=== PATIENT | male | born 1965 | race Caucasian/White ===

== ENCOUNTER → 2017-04-28 | Outpatient (CLI) | payer OTHER ==
[~2017-04-28] MED LIST: CONTRAST GIVEN MC PRN; IOHEXOL 240 MG/ML 50ML VIAL. PO ONE
--- NOTE | 2017-04-28 11:44 | RAD ---
CT abdomen without contrast 04/28/2017 Indication: Ventral hernia Comparison: None available Technique: Multiple axial CT images of the abdomen were performed without intravenous contrast. Coronal and sagittal reformats are provided. Oral contrast was administered. Findings: Visualized lung bases are clear. Heart size is within normal limits. Evaluation of solid abdominal viscera is limited by lack of intravenous contrast. The liver, spleen, bilateral adrenal glands, and pancreas are within normal limits. Gallbladder is present without adjacent inflammatory changes. Abdominal aorta is normal in course and caliber. Kidneys are symmetric in appearance. No renal calculi identified. No hydronephrosis. No renal calculi are identified along the visualized course of the ureters. Normal appendix is visualized. No dilated loops of small or large bowel. Opacified aspects of the bowel are normal without significant bowel wall thickening or adjacent inflammatory changes. There are no enlarged lymph nodes in the abdomen. There is no abdominal free fluid. No significant ventral abdominal hernia. Specifically, or inferior to the visualized portions of the sternum. Impression: No acute abnormality is identified within the abdomen. No CT evidence for a ventral hernia, especially in proximity to the sternum.
== END | disposition home or self-care (01) ==
LOC: CT 10:26
PROVIDERS: ATTEND Family Medicine
DX: K43.9 Ventral hernia without obstruction or gangrene (principal)
CPT/HCPCS: 74150; Q9966

== ENCOUNTER → 2020-03-11 | Outpatient (CLI) | payer MEDICAID ==
--- NOTE | 2020-03-11 12:09 | KCIC ---
PA and lateral views of the chest. Comparison: None available at this time Indication: Follow-up lung nodule Findings: 0.7 cm left mid to upper lung zone nodule. No focal consolidation. Normal lung volume. No pleural effusion or pneumothorax. The cardiomediastinal silhouette and great vessels are normal. No acute osseous abnormality. IMPRESSION: 0.7 cm left mid to upper lung zone nodule which could be partially calcified, but difficult to evaluate on radiographs. Indication states that this is a follow-up to a known lung nodule, but no prior imaging is available currently for comparison. Comparison to that imaging would be helpful. CT chest could be considered if not previously obtained. Electronically signed by: Francisco Holloway MD (03/11/2020 12:06 PM) [id number]
== END | disposition home or self-care (01) ==
LOC: KCIC 10:27
PROVIDERS: ATTEND Family Medicine
DX: R93.89 Abnormal findings on diagnostic imaging of other specified body structures (principal); R91.1 Solitary pulmonary nodule
CPT/HCPCS: 71046

== ENCOUNTER → 2020-05-10 | Outpatient (CLI) | payer MEDICAID ==
[~2020-05-10] MED LIST changes: -CONTRAST GIVEN MC PRN; -IOHEXOL 240 MG/ML 50ML VIAL. PO ONE; +REGADENOSON 0.4 MG/5 ML DISP.SYRIN. IV ONE
--- NOTE | 2020-05-10 10:58 | CARD ---
MR#: [id number] Date of Study: 05/10/2020 Ordering Physician: HILARIO TOWNSEND, Referring Physician: HILARIO TOWNSEND, Tech: Wanda Cyr APPROVED REPORT EXAM: Two-dimensional and M-mode echocardiogram with Doppler and color Doppler. Other Information Quality : AverageHR: 62bpm INDICATION Chest Pain RISK FACTORS Hyperlipidemia 2D DIMENSIONS RVDd4.1 (2.9-3.5cm)Left Atrium(2D)3.7 (1.6-4.0cm) IVSd1.0 (0.7-1.1cm)Aortic Root(2D)2.9 (2.0-3.7cm) LVDd5.0 (3.9-5.9cm)LVOT Diameter2.1 (1.8-2.4cm) PWd0.9 (0.7-1.1cm)LVDs3.5 (2.5-4.0cm) FS (%) 30.8 %SV69.8 ml LVEF(%)58.2 (>50%) Aortic Valve AoV Peak Mazin.160.2cm/sAoV VTI32.8cm AO Peak GR.10.3mmHgLVOT Peak Mazin.100.5cm/s LVOT VTI 24.37cmAO Mean GR.5mmHg HOSEA (VMAX)1.87rv3VBY (VTI)2.54cm2 Mitral Valve MV E Mgatkqna66.2cm/sMV DECEL RGFK124fk MV A Cikvkkrk11.3cm/sMV E Mean Gr.1mmHg MV CYT29nuC/A Ratio1.8 MVA (PHT)4.14cm2 TDI E/Lateral E'5.9E/Medial E'8.8 Pulmonary Valve PV Peak Shclxtbp148.3cm/sPV Peak Grad.6mmHg Tricuspid Valve TR P. Eemidwku951em/sRAP VOWOLXAY2vmAn TR Peak Gr.97qzXuGPTK92boLs Pulmonary Vein S1 Beqecepg49.0cm/sD2 Wdnrakqi13.8cm/s PVa lzzwrvan041cqgz LEFT VENTRICLE The left ventricle is normal size. There is normal left ventricular wall thickness. The left ventricu lar systolic function is normal. The Ejection Fraction is 55-60%. There is normal LV segmental wall m otion. RIGHT VENTRICLE The right ventricle is normal size. There is normal right ventricular wall thickness. The right ventr icular systolic function is normal. ATRIA The left atrium size is normal. The right atrium size is normal. The interatrial septum is intact wit h no evidence for an atrial septal defect or patent foramen ovale as noted on 2-D or Doppler imaging. AORTIC VALVE The aortic valve is thickened but opens well. Doppler and Color Flow revealed no significant aortic r egurgitation. There is no significant aortic valvular stenosis. Calculated aortic valve area is 2.46 cm2 with maximum pressure gradient of 11 mmHg and mean pressure gradient of 7 mmHg. MITRAL VALVE The mitral valve is normal in structure and function. There is no evidence of mitral valve prolapse. There is no mitral valve stenosis. Doppler and Color-flow revealed trace mitral regurgitation. TRICUSPID VALVE The tricuspid valve is normal in structure and function. Doppler and Color Flow revealed trace tricus pid regurgitation with an estimated PAP of 21 mmHg. There is no tricuspid valve stenosis. PULMONIC VALVE The pulmonic valve is not well visualized. Doppler and Color Flow revealed trace pulmonic valvular re gurgitation. GREAT VESSELS The aortic root is normal in size. The IVC is normal in size and collapses >50% with inspiration. PERICARDIAL EFFUSION There is no evidence of significant pericardial effusion. Critical Notification Critical Value: No <Conclusion> The left ventricular systolic function is normal. The Ejection Fraction is 55-60%. There is normal LV segmental wall motion. Trace mitral regurgitation. Trace tricuspid regurgitation with an estimated PAP of 21 mmHg. There is no evidence of significant pericardial effusion. Signed by : Hilario Townsend, Electronically Approved : 05/10/2020 10:57:49
--- NOTE | 2020-05-10 12:55 | RAD ---
MR#: [id number] Date of Study: 05/10/2020 Ordering Physician: HILARIO TILLMAN Referring Physician: KEHINDE TEE Tech: ARTUR Worley APPROVED REPORT Test Type: Pharmacological Stress Nurse/Tech: Diane Hickman R.N. Test Indications: chest pain Cardiac History: murmur Medications: See Electronic Medical Record Medical History: See Electronic Medical Record Resting ECG: s. kaleb Resting Heart Rate: 56 bpm Resting Blood Pressure: 142/72mmHg Pretest Chest Pain: No chest pain Nurse/Tech Notes murmur, lungs sound clear Consent: The procedure was explained to the patient in lay terms. Informed consent was witnessed. Ashkan eout was entered into [employer]. History and Stress Test performed by Diane Hickman R.N. Pharm. Details Pharmacologic stress testing was performed using 0.4mg per 5ml of regadenoson given intravenously ove r 7-10 seconds. Stress Symptoms heaviness in chest Chest pain typical of angina occurred (Severity , 1 min min duration). POST EXERCISE Reason for Termination: Infusion complete Target HR: 141 Max HR: 103 bpm Max Blood Pressure: 136/74mmHg Blood Pressure response to exercise: Normal blood pressure response during stress. Chest Pain: Yes. heaviness in chest rated at 5 Arrhythmia: No. ST Change: No. INTERPRETATION Stress EKG Conclusion: Baseline EKG showed sinus rhythm. No ischemic changes at peak stress. No arr hythmias. Imaging Protocol IMAGE PROTOCOL: Rest Tc-99m/stress Tc-99m 1 day Rest: Stress: Viability: Radiopharm.Tc99m XfxjdefynIh79c Sestamibi Lblg89mFa 33mCi Duration 15min. 13min. Img Date 05/10/2020 05/10/2020 Inj-Img Bfeu37yss. 60min. Rest Admin Site:IV - Right AntecubitalAdministrator:Bonita Vieira, RT (R)(N) Stress Admin Site: IV - Right AntecubitalAdministrator: LATOYA Triplett, ARRT (R)(N) STRESS DATA End Diast. Vol.121.0mlLVEDV index BSA68.0ml End Syst. Vol.32.0mlLVESV index BSA18.0ml Myocardial Ixvb769.0gEject. Kedmlclp08.0% Stress Scores Regional WT0.00Summed WT0.00 Regional WM0.00Summed WM0.00 Study quality was good. Left Ventricular size was Normal at Rest and Stress. Lung uptake was . Left Ventricular ejection fraction is 74%. The rest and stress images show normal perfusion, normal contraction and thickening. LV Perf. Quant 17 Seg. SSS0.00 17 Seg. SRS2.00 17 Seg. SDS0.00 Stress Defect Extent (% LAD)0.00Rest Defect Extent (% LAD)3.80Rev. Defect Extent (% LAD)0.00 Stress Defect Extent (% LCX) 0.00Rest Defect Extent (% LCX)1.30Rev. Defect Extent (% LCX)0.00 Stress Defect Extent (% RCA)0.00Rest Defect Extent (% RCA)6.70Rev. Defect Extent (% RCA)0.00 Stress Defect Extent (% LISANDRO)0.00Rest Defect Extent (% LISANDRO)2.80Rev. Defect Extent (% LISANDRO)0.00 Conclusion 1. Regadenoson cardioisotope stress test did not show any evidence of ischemia or infarct. 2. Normal left ventricular systolic function with ejection fraction calculated at 74%. 3. Low risk for cardiac events. Signed by : Hilario Tillman, Electronically Approved : 05/10/2020 12:55:34
== END | disposition home or self-care (01) ==
LOC: ECHO 08:44
PROVIDERS: ATTEND Internal Medicine Cardiovascular Disease
DX: R07.9 Chest pain, unspecified (principal)
CPT/HCPCS: 78452; 93017; 93306; A9500; J2785

== ENCOUNTER → 2021-04-23 | Outpatient (CLI) | payer MEDICAID ==
--- NOTE | 2021-04-23 14:08 | KCIC ---
EXAM: CT CHEST WITHOUT CONTRAST HISTORY: Lung nodule seen on x-ray. COMPARISON: Chest radiograph 03/11/2020 TECHNIQUE: Helical CT of the chest performed without contrast. Coronal and sagittal reformats were o btained. One or more of the following individualized dose reduction techniques were utilized for this examinat ion: 1. Automated exposure control 2. Adjustment of the mA and/or kV according to patient size 3. Use of iterative reconstruction technique. FINDINGS: Thyroid gland and thoracic inlet: Normal. Heart and great vessels: Heart is normal in size. No pericardial effusion. Thoracic aorta is normal i n caliber. Mediastinum and roxie: There are calcified left hilar lymph nodes. No suspicious lymphadenopathy. Lungs and pleura: There is a 7 mm calcified granuloma in the superior segment of the left lower lobe. The lungs are otherwise clear. No pleural effusion. Central airways are clear Chest wall and axillae: No axillary lymphadenopathy. Upper abdomen: The upper abdomen is unremarkable. Bones: No acute osseous abnormalities. IMPRESSION: Benign 7 mm calcified granuloma in the superior segment left lower lobe requiring no foll ow-up. No suspicious pulmonary nodules. Electronically signed by: Dulce Zurita MD (04/23/2021 2:05 PM) [id number]
== END ==
LOC: KCIC CT 12:26
PROVIDERS: ATTEND Family Medicine
DX: R91.1 Solitary pulmonary nodule (principal); J84.10 Pulmonary fibrosis, unspecified; I89.8 Other specified noninfective disorders of lymphatic vessels and lymph nodes
CPT/HCPCS: 71250

== ENCOUNTER → 2021-05-21 | Outpatient (CLI) | payer MEDICAID ==
--- NOTE | 2021-05-21 14:19 | CARD ---
MR#: [id number] Date of Study: 05/21/2021 Ordering Physician: HILARIO TILLMAN, Referring Physician: HILARIO TILLMAN, Tech: Wanda Kenyonrubénihsan, [facility] APPROVED REPORT EXAM: Two-dimensional and M-mode echocardiogram with Doppler and color Doppler. Other Information Quality : AverageHR: 62bpm INDICATION Syncope RISK FACTORS Hyperlipidemia 2D DIMENSIONS IVSd1.0 (0.7-1.1cm)Aortic Root(2D)2.9 (2.0-3.7cm) LVDd5.1 (3.9-5.9cm)PWd0.9 (0.7-1.1cm) LVDs2.1 (2.5-4.0cm)FS (%) 59.5 % SV108.7 ml Aortic Valve AoV Peak Mazin.160.8cm/sAoV VTI30.9cm AO Peak GR.10.3mmHgLVOT Peak Mazin.90.1cm/s LVOT VTI 19.14cmAO Mean GR.5mmHg Mitral Valve MV E Ofljntxz00.4cm/sMV DECEL OZIU801pp MV A Alxxqikg94.0cm/sMV RSP19cb E/A Ratio1.7MVA (PHT)3.22cm2 TDI E/Lateral E'5.4E/Medial E'5.9 Pulmonary Valve PV Peak Iddzvlfl57.1cm/sPV Peak Grad.3mmHg Tricuspid Valve TR P. Wmvaypfu824im/sRAP DNIVDTBE4xtKg TR Peak Gr.67qbXyKWCN29gjEo Pulmonary Vein S1 Ckzgaivq40.1cm/sD2 Vukwcqqd22.5cm/s PVa pwswwzua904tqic LEFT VENTRICLE The left ventricle is normal size. There is normal left ventricular wall thickness. The left ventricu lar systolic function is normal and the ejection fraction is within normal range. The Ejection Fracti on is 50-55%. There is normal LV segmental wall motion. Transmitral Doppler flow pattern is Grade II- pseudonormal filling dynamics. RIGHT VENTRICLE The right ventricle is normal size. There is normal right ventricular wall thickness. The right ventr icular systolic function is normal. ATRIA The left atrium size is normal. The right atrium size is normal. The interatrial septum is intact wit h no evidence for an atrial septal defect or patent foramen ovale as noted on 2-D or Doppler imaging. AORTIC VALVE The aortic valve is normal in structure and function. Doppler and Color Flow revealed no significant aortic regurgitation. There is no significant aortic valvular stensis. Maximum pressure gradient of 1 2 mmHg and mean pressure gradient of 6 mmHg. MITRAL VALVE The mitral valve is normal in structure and function. There is no evidence of mitral valve prolapse. There is no mitral valve stenosis. Doppler and Color-flow revealed trace mitral regurgitation. TRICUSPID VALVE The tricuspid valve is normal in structure and function. Doppler and Color Flow revealed trace tricus pid regurgitation with an estimated PAP of 33 mmHg. There is no tricuspid valve stenosis. PULMONIC VALVE The pulmonary valve is normal in structure and function. Doppler and Color Flow revealed trace pulmon ic valvular regurgitation. GREAT VESSELS The aortic root is normal in size. The ascending aorta is normal in size. The IVC is normal in size a nd collapses >50% with inspiration. PERICARDIAL EFFUSION There is no evidence of significant pericardial effusion. Critical Notification Critical Value: No <Conclusion> The left ventricle is normal size. The left ventricular systolic function is normal and the ejection fraction is within normal range. The Ejection Fraction is 50-55%. Doppler and Color Flow revealed no significant aortic regurgitation. There is no significant aortic valvular stensis. Doppler and Color-flow revealed trace mitral regurgitation. Doppler and Color Flow revealed trace tricuspid regurgitation with an estimated PAP of 33 mmHg. Signed by : Brock Bedoya MD Electronically Approved : 05/21/2021 14:18:44
== END ==
LOC: ECHO 08:22
PROVIDERS: ATTEND Internal Medicine Cardiovascular Disease
DX: R55 Syncope and collapse (principal); E78.5 Hyperlipidemia, unspecified
CPT/HCPCS: 93306